=== PATIENT | female | born 1955 | race Caucasian/White ===

== ENCOUNTER → 2024-12-11 | Outpatient (CLI) | payer MEDICARE, SELFPAY ==
--- NOTE | 2024-12-11 | ASPIG_PTH ---
PATIENT: JIMI RAND [facility]: [facility] U#:[id number] AGE/SX: 69/F ROOM: RE12/11/[address]: Dr. Trevor Emerson MD : [id number] BED: DIS: 12/11/2024 SPEC #: [id number] RECD: 12/11/24 15:11 STATUS: ANA LUISA REKusum #: [id number] SVETA: 12/11/24 00:[address]: Trevor Emerson DEPT: CYTOLOGY RECD BY: Armen Jones ENTERED: 12/11/24 15:13 SP TYPE: ASP OUT OTHR DR: Dr. Jody Rosa MD Tissues: Thyroid gland, NOS Procedures: FNA Specimen Adequacy Special Stain Group II Surgery Specimen Level IV Cytology Other HEADER OPERATION: Fine needle aspiration of left thyroid nodule PRE-OP DIAGNOSIS: Left thyroid nodule TISSUE SUBMITTED: A- Left superior thyroid nodule for cytology DIAGNOSIS CYTOLOGY A. Left superior thyroid nodule, FNA: * No malignant cells are identified * Benign follicular cells (benign follicular nodule) Preliminary studies/adequacy: The specimen is evaluated at the time of biopsy by Dr. Abreu 12/11/24. Immediate Evaluation = 1. Blood. 2. Adequate. 3. Blood CYTOLOGY STUDY Slides are reviewed. CYTOLOGY GROSS A. Received of 4 PAP and 3 DQ ml labeled with the patient's name and and designated per the requisition as Left superior thyroid nodule. Submitted for cytology and cell block preparation. Mr 12/11/2024 CPT: 12710
== END | disposition home or self-care (01) ==
LOC: LABSPEC 15:09
PROVIDERS: PCP Student in an Organized Health Care Education/Training Program; Visit Provider Surgery
DX: E04.1 Nontoxic single thyroid nodule (principal)
CPT/HCPCS: 88161; 88172; 88305; 88313